=== PATIENT | female | born 2000 | race Caucasian/White ===

== ENCOUNTER → 2020-05-06 13:57 | Observation (INO) | END | disposition home or self-care (01) | LOC: 1NENULAB | PROVIDERS: ADMIT Advanced Practice Midwife; ATTEND Advanced Practice Midwife ==

== ENCOUNTER 2020-05-31 09:51 | Inpatient (IN) ==
[2020-05-31] MEDS ORDERED: Ondansetron 4 MG/2 ML VIAL IVP PRN ×2 (09:56→12:26)
[2020-05-31] MEDS ORDERED: Lidocaine 1% 20 ML MDV INFILT PRN (09:56)
[2020-05-31] MEDS ORDERED: Famotidine 20 MG/2 ML VIAL IVP PRN (09:56)
[2020-05-31] MEDS ORDERED: Naloxone 0.4 MG/ML INJ IVP PRN ×2 (09:56→12:26)
[2020-05-31] MEDS ORDERED: miSOPROStoL 25 MCG TABLET PO PRN (09:56)
[2020-05-31] MEDS ORDERED: Metoclopramide 10 MG/2 ML VIAL IVP PRN (09:56)
[2020-05-31] MEDS ORDERED: Ringers Solution, Lactated 1,000 ML IVC SCH (10:00)
[2020-05-31 11:19] LABS: Basophils % 0.1 %; Eosinophils % 0.2 %; Hematocrit 34.3 % (35.3-44.9); Hemoglobin 11.3 g/dL (11.5-15.4); Immature Granulocytes % 0.3 % (0-4); Lymphocytes # 1.3 K/mcL (0.6-4.6); Lymphocytes % 14.2 %; Mean Corpuscular HGB Conc 32.9 g/dL (31.6-35.5); Mean Corpuscular Hemoglobin 30.3 pg (28.0-33.3); Monocytes # 0.4 K/mcL (0.0-1.3); Monocytes % 4.8 %; Neutrophils # 7.4 K/mcL (1.6-8.9); Platelet Count 201 K/mcL (140-400); Red Blood Count 3.73 M/mcL (3.82-4.97); Red Cell Distribution Width 12.9 % (11.5-14.5); Segmented Neutrophils % 80.4 %; White Blood Count 9.2 K/mcL (4.3-11.1)
[2020-05-31 11:22] LABS: Amphetamine Screen,Urine Negative ng/mL (Cutoff=1000); Barbiturate Screen,Urine Negative ng/mL (Cutoff=200); Benzodiazepines Screen,Urine Negative ng/mL (Cutoff=200); Cannabinoid Screen,Urine Negative ng/mL (Cutoff = 50); Cocaine Screen,Urine Negative ng/mL (Cutoff= 300); Opiate Screen,Urine Negative ng/mL (Cutoff=300); Phencyclidine Screen,Urine Negative ng/mL (Cutoff=25)
[2020-05-31] MEDS ORDERED: Ropivacaine/PF 0.2% 20 ML VIAL EP ONE (12:26)
[2020-05-31] MEDS ORDERED: EPHEDrine 50 MG/ML VIAL IVP PRN (12:26)
[2020-05-31] MEDS: *HR* FentaNYL (PF) 100 MCG/2 ML VIAL IVP PRN ×2 (13:22→17:04)
[2020-05-31] MEDS ORDERED: Oxytocin 20 units/ LR 1000 mL 20 UNIT/1,000 ML BAG IVC SCH (16:15)
[2020-05-31] MEDS ORDERED: Ropivacaine/PF 0.2% 20 ML VIAL ONE (22:02)
[2020-06-01] MEDS: Epidural Premix (fent/bupiv) 110 ML EP SCH ×2 (01:08→06:29)
[2020-06-01] MEDS ORDERED: Ropivacaine/PF 0.2% 20 ML VIAL ONE (06:53)
[2020-06-01] MEDS ORDERED: Lidocaine -MPF 2% 5 ML VIAL ONE (06:53)
[2020-06-01] MEDS ORDERED: Rho Immune Globulin 1,500 UNIT SYRINGE IM PRN (11:48)
[2020-06-01] MEDS ORDERED: Lanolin 7 G OINT...G. TP PRN (11:48)
[2020-06-01] MEDS ORDERED: Acetaminophen 325 MG TABLET PO PRN (11:48)
[2020-06-01] MEDS ORDERED: Benzocaine/Menthol 56 GM AEROSOL SPRAY TP PRN (11:48)
[2020-06-01] MEDS ORDERED: Sennosides 8.6 MG TABLET PO PRN (11:48)
[2020-06-01] MEDS ORDERED: Oxytocin 20 units/ LR 1000 mL 20 UNIT/1,000 ML BAG IVC SCH (11:48)
[2020-06-01] MEDS: Ibuprofen 600 MG TABLET PO PRN (22:12)
[2020-06-02 07:55] VITALS: BP 108/67
[2020-06-02] MEDS: Ibuprofen 600 MG TABLET PO PRN (08:10)
[2020-06-02] MEDS ORDERED: Prenatal Vit/FA 1 EACH TABLET PO SCH (09:00)
== END 2020-06-02 11:56 | disposition home or self-care (01) | DRG 807 ==
LOC: 1NENULAB 09:51 → 1NENUOBS 06-01 11:09
PROVIDERS: ADMIT Advanced Practice Midwife; ATTEND Advanced Practice Midwife